=== PATIENT | male | born 1965 | race Caucasian/White ===

== ENCOUNTER 2019-11-02 17:07 | Inpatient (IN) | payer MEDICARE, OTHER ==
[~2019-11-02] VITALS: Ht 172.7 cm; Wt 77.7 kg
[2019-11-02 17:38] LABS: BASOPHILS % (AUTO) 0.1 % (0-1); EOSINOPHILS % (AUTO) 0.6 % (0-6); HEMOGLOBIN 11.8 g/dl (14.0-17.9); LYMPHOCYTES # (AUTO) 0.8 X10'3 (1.1-4.8); LYMPHOCYTES % (AUTO) 9.6 % (21-51); MEAN CORPUSCULAR HEMOGLOBIN 33.8 PG (27.0-31.0); MEAN CORPUSCULAR HGB CONC 34.6 g/dL (33.0-36.5); MEAN CORPUSCULAR VOLUME 97.5 FL (78-98); MEAN PLATELET VOLUME 7.5 FL (7.4-10.4); MONOCYTES # (AUTO) 0.3 X10'3 (0-0.9); MONOCYTES % (AUTO) 3.7 % (2-12); NEUTROPHILS # (AUTO) 7.2 X10'3 (1.8-7.7); PLATELET COUNT 551 X10'3 (140-440); RED BLOOD COUNT 3.49 X10'6 (4.70-6.10); RED CELL DISTRIBUTION WIDTH 14.6 % (11.5-14.5); WHITE BLOOD COUNT 8.3 X10'3 (4.5-11.0)
[2019-11-02 17:57] LABS: ALANINE AMINOTRANSFERASE 14 U/L (12-78); ALBUMIN 1.9 G/DL (3.4-5.0); ALBUMIN/GLOBULIN RATIO 0.5 (1.1-1.5); ALKALINE PHOSPHATASE 84 IU/L (46-116); ANION GAP 11 (8-16); ASPARTATE AMINO TRANSFERASE 31 U/L (10-37); BILIRUBIN,TOTAL 0.4 MG/DL (0.1-1.0); BLOOD UREA NITROGEN 10 MG/DL (7-18); BUN/CREATININE RATIO 11.6 (5.4-32.0); CALCIUM 8.4 MG/DL (8.5-10.1); CHLORIDE 101 MMOL/L (99-107); CREATININE 0.86 MG/DL (0.60-1.10); GLUCOSE 184 MG/DL (70-104); LIPASE 491 U/L (73-393); SODIUM 137 MMOL/L (135-145); TOTAL CARBON DIOXIDE 24.8 MMOL/L (24-32); TOTAL PROTEIN 5.9 G/DL (6.4-8.2); eGFR > 90 ML/MIN
[2019-11-02 18:02] LABS: POTASSIUM 2.9 MMOL/L (3.5-5.1)
[2019-11-02] MEDS ORDERED: ondansetron 4mg rapidly disintigrating tab PO ONE (18:15)
[2019-11-02] MEDS ORDERED: potassium Cl 20 mEq SR tablet PO ONE (18:15)
[2019-11-02] MEDS ORDERED: morphine 4 MG/ML inj SYRINge IM ONE (18:25)
[2019-11-02] MEDS ORDERED: PRED20TA PO (20:03)
[2019-11-02] MEDS ORDERED: RANI150C4 PO (20:05)
[2019-11-02] MEDS ORDERED: CITA20TA2 PO (20:05)
[2019-11-02] MEDS ORDERED: HYDR25TA4 PO (20:05)
[2019-11-02] MEDS ORDERED: TRAZ-251 PO (20:07)
[2019-11-02] MEDS ORDERED: LISI-643 PO (20:07)
[2019-11-02] MEDS ORDERED: ACET-2144 PO (20:07)
[2019-11-02] MEDS ORDERED: magnesium hydroxide 30ml (MOM) UD suspension PO PRN (20:25)
[2019-11-02] MEDS ORDERED: ondansetron/PF 4mg/2ml inj IV PRN (20:25)
[2019-11-02] MEDS ORDERED: acetaminophen 325mg tablet PO PRN (20:25)
[2019-11-02] MEDS ORDERED: mag hydrox/Alum hydrox/simeth 30ml oral suspension PO PRN (20:25)
[2019-11-02] MEDS ORDERED: potassium CL 10mEq/100ml bag 100 ML IV PRN (20:25)
[2019-11-02] MEDS ORDERED: morphine/NS 5 mg/ml CADD 50 ML IV SCH (20:28)
[2019-11-02] MEDS ORDERED: naloxone 0.4 mg/ml inj IV PRN (20:30)
[2019-11-02] MEDS ORDERED: CADD PCA waste documentation MC PRN (20:30)
[2019-11-02 21:20] VITALS: BP 107/69
--- NOTE | 2019-11-02 21:20 | NUR ---
PATIENT ADMITTED TO ROOM 353 FROM ER FOR PANCREATITIS, CROHN'S DISEASE AND HYPOKALEMIA. PLACED COMFORTABLE IN BED. VITAL SIGNS TAKEN AND RECORDED.
[2019-11-02] MEDS: traZODone 50mg tablet PO SCH (21:49)
[2019-11-02] MEDS: potassium Cl 20mEq in NS 1,000 ML IV SCH (21:51)
[2019-11-02] MEDS: potassium CL 10mEq/100ml bag 100 ML IV PRN (22:32)
[2019-11-02] MEDS: morphine/NS 5 mg/ml CADD 50 ML IV SCH (23:29)
[2019-11-03] VITALS: BP 116/74
[2019-11-03] MEDS: morphine/NS 5 mg/ml CADD 50 ML IV SCH ×3 (01:00→05:47)
[2019-11-03] MEDS: potassium CL 10mEq/100ml bag 100 ML IV PRN ×2 (01:12→04:23)
[2019-11-03 06:04] LABS: BASOPHILS % (AUTO) 0.1 % (0-1); EOSINOPHILS % (AUTO) 0.4 % (0-6); HEMATOCRIT 27.6 % (42.0-52.0); HEMOGLOBIN 9.7 g/dl (14.0-17.9); LYMPHOCYTES # (AUTO) 1.8 X10'3 (1.1-4.8); LYMPHOCYTES % (AUTO) 25.9 % (21-51); MEAN CORPUSCULAR HEMOGLOBIN 34.8 PG (27.0-31.0); MEAN CORPUSCULAR HGB CONC 35.1 g/dL (33.0-36.5); MEAN CORPUSCULAR VOLUME 98.9 FL (78-98); MEAN PLATELET VOLUME 7.8 FL (7.4-10.4); MONOCYTES # (AUTO) 0.6 X10'3 (0-0.9); MONOCYTES % (AUTO) 8.7 % (2-12); NEUTROPHILS # (AUTO) 4.5 X10'3 (1.8-7.7); NEUTROPHILS % (AUTO) 64.9 % (42-75); PLATELET COUNT 446 X10'3 (140-440); RED BLOOD COUNT 2.79 X10'6 (4.70-6.10); RED CELL DISTRIBUTION WIDTH 14.5 % (11.5-14.5)
[2019-11-03 06:11] LABS: ALANINE AMINOTRANSFERASE 13 U/L (12-78); ALBUMIN 1.6 G/DL (3.4-5.0); ALBUMIN/GLOBULIN RATIO 0.5 (1.1-1.5); ALKALINE PHOSPHATASE 72 IU/L (46-116); ANION GAP 8 (8-16); ASPARTATE AMINO TRANSFERASE 11 U/L (10-37); BILIRUBIN,TOTAL 0.4 MG/DL (0.1-1.0); BLOOD UREA NITROGEN 9 MG/DL (7-18); BUN/CREATININE RATIO 11.4 (5.4-32.0); CALCIUM 7.8 MG/DL (8.5-10.1); CHLORIDE 104 MMOL/L (99-107); CREATININE 0.79 MG/DL (0.60-1.10); GLUCOSE 102 MG/DL (70-104); POTASSIUM 3.2 MMOL/L (3.5-5.1); SODIUM 139 MMOL/L (135-145); TOTAL CARBON DIOXIDE 26.6 MMOL/L (24-32); TOTAL PROTEIN 5.1 G/DL (6.4-8.2); eGFR > 90 ML/MIN
[2019-11-03] MEDS: potassium Cl 20mEq in NS 1,000 ML IV SCH ×3 (06:23→20:25)
--- NOTE | 2019-11-03 06:25 | NUR ---
Patient in room [facility]. I have received report from Kelley Benson RN and had the opportunity to ask questions and assume patient care.
--- NOTE | 2019-11-03 06:26 | NUR ---
Problems reprioritized. Patient report given, questions answered & plan of care reviewed with NE RN.
[2019-11-03 06:30] VITALS: BP 104/69
[2019-11-03] MEDS: K and/or MAG REPLACEMENT MC SCH ×2 (07:11→20:00)
[2019-11-03] MEDS ORDERED: magnesium 2GM in 50ml NS 50 ML IV PRN (07:15)
[2019-11-03] MEDS ORDERED: potassium Cl 20 mEq SR tablet PO PRN (07:15)
[2019-11-03] MEDS ORDERED: magnesium Cl slow-release 64mg tablet PO PRN (07:15)
[2019-11-03] MEDS ORDERED: magnesium 4gm in 100ml NS 100 ML IV PRN (07:15)
[2019-11-03] MEDS ORDERED: methylPREDNISolone sod succ/PF 40mg inj. IV SCH (08:00)
[2019-11-03] MEDS: lisinopril 10 MG tablet PO SCH (08:00)
[2019-11-03] MEDS: citalopram 20mg tablet PO SCH (08:56)
[2019-11-03] MEDS: famotidine 20mg tablet PO SCH ×2 (08:56→20:11)
[2019-11-03] MEDS: potassium Cl 20 mEq SR tablet PO PRN ×3 (09:00→17:39)
[2019-11-03] MEDS ORDERED: HYDROcodone/acetaminophen 10/325mg tab PO PRN (10:20)
[2019-11-03] MEDS ORDERED: HYDROcodone/acetaminophen 5mg/325mg tablet PO PRN (10:20)
[2019-11-03] MEDS ORDERED: CADD PCA waste documentation MC PRN (10:45)
[2019-11-03] MEDS: HYDROcodone/acetaminophen 10/325mg tab PO PRN ×3 (10:50→23:18)
[2019-11-03 11:30] VITALS: BP 110/71
[2019-11-03 12:17] LABS: C DIFF ANTIGEN NEGATIVE (NEGATIVE); C DIFF SPECIMEN=DIARRHEA? ACCEPTABLE; C DIFFICILE TOXINS A&B NEGATIVE (Neg)
[2019-11-03] MEDS: mesalamine 1.2gm ER tablet PO SCH ×3 (12:53→20:10)
[2019-11-03] MEDS: hydrocortisone sod succ/PF 100mg/2ml inj. IV SCH ×2 (13:29→20:10)
--- NOTE | 2019-11-03 16:01 | NUR ---
Pt recently diagnosed with Crohn's disease in September of this year, treated with Prednisone per H&P. Pt presented with c/o abdominal pain with having about 8 BMs of diarrhea a day per MD notes. Written Crohn's nutrition therapy education with a list of fiber content of foods and RD contact information placed in patient's chart. Will remain available. Addendum: 11/03/19 at [address] Amended: Links added.
[2019-11-03 18:00] VITALS: BP 106/66
--- NOTE | 2019-11-03 18:30 | NUR ---
Problems reprioritized. Patient report given, questions answered & plan of care reviewed with SARAH Eaton.
[2019-11-03 19:00] VITALS: BP 106/66
--- NOTE | 2019-11-03 19:19 | NUR ---
Patient in room [facility]. I have received report from Shreya SMITH and had the opportunity to ask questions and assume patient care.
[2019-11-03] MEDS: traZODone 50mg tablet PO SCH (20:11)
[2019-11-03] MEDS: morphine 2 MG/ML inj. syringe IV PRN (20:19)
[2019-11-04 00:54] VITALS: BP 117/79
[2019-11-04] MEDS: hydrocortisone sod succ/PF 100mg/2ml inj. IV SCH ×4 (02:05→19:39)
[2019-11-04] MEDS: morphine 2 MG/ML inj. syringe IV PRN ×2 (02:05→19:40)
[2019-11-04 04:58] LABS: BASOPHILS % (AUTO) 0 % (0-1); EOSINOPHILS % (AUTO) 0 % (0-6); HEMOGLOBIN 8.7 g/dl (14.0-17.9); LYMPHOCYTES # (AUTO) 0.7 X10'3 (1.1-4.8); LYMPHOCYTES % (AUTO) 13.4 % (21-51); MEAN CORPUSCULAR HEMOGLOBIN 33.3 PG (27.0-31.0); MEAN CORPUSCULAR HGB CONC 33.5 g/dL (33.0-36.5); MEAN CORPUSCULAR VOLUME 99.5 FL (78-98); MEAN PLATELET VOLUME 7.7 FL (7.4-10.4); MONOCYTES # (AUTO) 0.3 X10'3 (0-0.9); MONOCYTES % (AUTO) 5.9 % (2-12); NEUTROPHILS # (AUTO) 4.3 X10'3 (1.8-7.7); NEUTROPHILS % (AUTO) 80.7 % (42-75); PLATELET COUNT 380 X10'3 (140-440); RED BLOOD COUNT 2.62 X10'6 (4.70-6.10); RED CELL DISTRIBUTION WIDTH 14.4 % (11.5-14.5); WHITE BLOOD COUNT 5.3 X10'3 (4.5-11.0)
[2019-11-04 05:09] LABS: ALANINE AMINOTRANSFERASE 15 U/L (12-78); ALBUMIN 1.4 G/DL (3.4-5.0); ALBUMIN/GLOBULIN RATIO 0.4 (1.1-1.5); ALKALINE PHOSPHATASE 64 IU/L (46-116); ANION GAP 4 (8-16); ASPARTATE AMINO TRANSFERASE 16 U/L (10-37); BILIRUBIN,TOTAL 0.2 MG/DL (0.1-1.0); BLOOD UREA NITROGEN 15 MG/DL (7-18); BUN/CREATININE RATIO 18.3 (5.4-32.0); CALCIUM 7.7 MG/DL (8.5-10.1); CHLORIDE 108 MMOL/L (99-107); CREATININE 0.82 MG/DL (0.60-1.10); GLUCOSE 188 MG/DL (70-104); POTASSIUM 4.6 MMOL/L (3.5-5.1); SODIUM 138 MMOL/L (135-145); TOTAL CARBON DIOXIDE 25.9 MMOL/L (24-32); TOTAL PROTEIN 4.7 G/DL (6.4-8.2); eGFR > 90 ML/MIN
--- NOTE | 2019-11-04 06:10 | NUR ---
Patient in room [facility]. I have received report from SARAH Eaton and had the opportunity to ask questions and assume patient care.
--- NOTE | 2019-11-04 06:15 | NUR ---
Problems reprioritized. Patient report given, questions answered & plan of care reviewed with Shreya RN.
[2019-11-04 06:30] VITALS: BP 99/59
[2019-11-04] MEDS: K and/or MAG REPLACEMENT MC SCH ×2 (06:47→20:00)
[2019-11-04] MEDS: lisinopril 10 MG tablet PO SCH (07:06)
[2019-11-04] MEDS: mesalamine 1.2gm ER tablet PO SCH ×4 (07:37→22:27)
[2019-11-04] MEDS: citalopram 20mg tablet PO SCH (07:38)
[2019-11-04] MEDS: HYDROcodone/acetaminophen 10/325mg tab PO PRN ×4 (07:38→22:27)
[2019-11-04] MEDS: famotidine 20mg tablet PO SCH ×2 (07:38→19:37)
[2019-11-04] MEDS: potassium Cl 20mEq in NS 1,000 ML IV SCH ×2 (08:19→17:41)
[2019-11-04 11:00] VITALS: BP 126/84
--- NOTE | 2019-11-04 18:30 | NUR ---
Patient in room [facility]. I have received report from Shreya SMITH and had the opportunity to ask questions and assume patient care.
--- NOTE | 2019-11-04 18:45 | NUR ---
Problems reprioritized. Patient report given, questions answered & plan of care reviewed with Yoon RN & SARAH Sheldon.
[2019-11-04 20:00] VITALS: BP 125/87
[2019-11-04] MEDS: traZODone 50mg tablet PO SCH (22:27)
[2019-11-05] VITALS: BP 119/86
[2019-11-05] MEDS: hydrocortisone sod succ/PF 100mg/2ml inj. IV SCH ×4 (02:53→20:42)
[2019-11-05] MEDS: HYDROcodone/acetaminophen 10/325mg tab PO PRN ×4 (02:54→18:07)
[2019-11-05] MEDS: potassium Cl 20mEq in NS 1,000 ML IV SCH ×2 (03:02→13:22)
[2019-11-05 05:21] LABS: ALANINE AMINOTRANSFERASE 15 U/L (12-78); ALBUMIN 1.5 G/DL (3.4-5.0); ALBUMIN/GLOBULIN RATIO 0.4 (1.1-1.5); ALKALINE PHOSPHATASE 64 IU/L (46-116); ANION GAP 8 (8-16); ASPARTATE AMINO TRANSFERASE 14 U/L (10-37); BILIRUBIN,TOTAL 0.2 MG/DL (0.1-1.0); BLOOD UREA NITROGEN 16 MG/DL (7-18); BUN/CREATININE RATIO 19.3 (5.4-32.0); CHLORIDE 108 MMOL/L (99-107); CREATININE 0.83 MG/DL (0.60-1.10); GLUCOSE 170 MG/DL (70-104); POTASSIUM 4.8 MMOL/L (3.5-5.1); SODIUM 139 MMOL/L (135-145); TOTAL CARBON DIOXIDE 23.2 MMOL/L (24-32); TOTAL PROTEIN 5.2 G/DL (6.4-8.2); eGFR > 90 ML/MIN
[2019-11-05 05:28] LABS: BASOPHILS % (AUTO) 0.2 % (0-1); EOSINOPHILS % (AUTO) 0.5 % (0-6); HEMATOCRIT 27.5 % (42.0-52.0); HEMOGLOBIN 9.1 g/dl (14.0-17.9); LYMPHOCYTES # (AUTO) 0.7 X10'3 (1.1-4.8); LYMPHOCYTES % (AUTO) 13.7 % (21-51); MEAN CORPUSCULAR HEMOGLOBIN 34.1 PG (27.0-31.0); MEAN CORPUSCULAR HGB CONC 33.2 g/dL (33.0-36.5); MEAN CORPUSCULAR VOLUME 102.8 FL (78-98); MEAN PLATELET VOLUME 8.1 FL (7.4-10.4); MONOCYTES # (AUTO) 0.4 X10'3 (0-0.9); MONOCYTES % (AUTO) 6.6 % (2-12); NEUTROPHILS # (AUTO) 4.3 X10'3 (1.8-7.7); PLATELET COUNT 421 X10'3 (140-440); RED BLOOD COUNT 2.67 X10'6 (4.70-6.10); RED CELL DISTRIBUTION WIDTH 14.7 % (11.5-14.5); WHITE BLOOD COUNT 5.4 X10'3 (4.5-11.0)
[2019-11-05] MEDS: morphine 2 MG/ML inj. syringe IV PRN ×2 (05:33→22:43)
--- NOTE | 2019-11-05 06:15 | NUR ---
Patient in room [facility]. I have received report from SARAH Nettles and had the opportunity to ask questions and assume patient care.
[2019-11-05 06:30] VITALS: BP 127/73
--- NOTE | 2019-11-05 06:36 | NUR ---
Problems reprioritized. Patient report given, questions answered & plan of care reviewed with Shreya RN.
[2019-11-05] MEDS: K and/or MAG REPLACEMENT MC SCH ×2 (07:14→19:07)
[2019-11-05] MEDS: mesalamine 1.2gm ER tablet PO SCH ×4 (09:19→20:40)
[2019-11-05] MEDS: famotidine 20mg tablet PO SCH ×2 (09:19→20:40)
[2019-11-05] MEDS: lisinopril 10 MG tablet PO SCH (09:19)
[2019-11-05] MEDS: enoxaparin 40mg/0.4ml syringe SUBCUT SCH (09:20)
[2019-11-05] MEDS: citalopram 20mg tablet PO SCH (09:20)
[2019-11-05] MEDS ORDERED: temazepam 15mg capsule PO PRN (10:45)
[2019-11-05 11:00] VITALS: BP 130/79
--- NOTE | 2019-11-05 12:02 | NUR ---
Nutrition consult: "New Crohn's DX." Nutrition therapy ed w/ RD contact information has been placed in pt chart; see prior RD note. Addendum: 11/05/19 at [address] Amended: Links added.
--- NOTE | 2019-11-05 12:04 | NUR ---
Patient in room [facility]. I have received report from Shreya SMITH and had the opportunity to ask questions and assume patient care.
[2019-11-05 18:00] VITALS: BP 132/86
--- NOTE | 2019-11-05 19:12 | NUR ---
All cares given [place] x2 for pain with effect. report given to Gloria SMITH
[2019-11-05] MEDS ORDERED: traZODone 50mg tablet PO SCH (23:00)
[2019-11-06] VITALS: BP 153/92
[2019-11-06] MEDS: hydrocortisone sod succ/PF 100mg/2ml inj. IV SCH ×2 (02:27→08:38)
[2019-11-06] MEDS: HYDROcodone/acetaminophen 10/325mg tab PO PRN ×2 (02:27→08:39)
[2019-11-06] MEDS: potassium Cl 20mEq in NS 1,000 ML IV SCH ×2 (04:36→08:44)
--- NOTE | 2019-11-06 06:20 | NUR ---
Problems reprioritized. Patient report given, questions answered & plan of care reviewed with SARAH Cartwright.
--- NOTE | 2019-11-06 06:46 | NUR ---
Patient in room [facility]. I have received report from SARAH HENSON and had the opportunity to ask questions and assume patient care.
[2019-11-06 06:55] LABS: BASOPHILS % (AUTO) 0.2 % (0-1); EOSINOPHILS % (AUTO) 0 % (0-6); HEMATOCRIT 27.6 % (42.0-52.0); HEMOGLOBIN 9.2 g/dl (14.0-17.9); LYMPHOCYTES # (AUTO) 0.8 X10'3 (1.1-4.8); LYMPHOCYTES % (AUTO) 14.6 % (21-51); MEAN CORPUSCULAR HEMOGLOBIN 33.1 PG (27.0-31.0); MEAN CORPUSCULAR HGB CONC 33.2 g/dL (33.0-36.5); MEAN PLATELET VOLUME 8.2 FL (7.4-10.4); MONOCYTES # (AUTO) 0.3 X10'3 (0-0.9); MONOCYTES % (AUTO) 5.9 % (2-12); NEUTROPHILS # (AUTO) 4.1 X10'3 (1.8-7.7); NEUTROPHILS % (AUTO) 79.3 % (42-75); PLATELET COUNT 432 X10'3 (140-440); RED BLOOD COUNT 2.76 X10'6 (4.70-6.10); RED CELL DISTRIBUTION WIDTH 14.7 % (11.5-14.5); WHITE BLOOD COUNT 5.2 X10'3 (4.5-11.0)
[2019-11-06 07:00] VITALS: BP 157/90
[2019-11-06 07:08] LABS: ALANINE AMINOTRANSFERASE 19 U/L (12-78); ALBUMIN 1.6 G/DL (3.4-5.0); ALBUMIN/GLOBULIN RATIO 0.5 (1.1-1.5); ALKALINE PHOSPHATASE 70 IU/L (46-116); ANION GAP 6 (8-16); ASPARTATE AMINO TRANSFERASE 14 U/L (10-37); BILIRUBIN,TOTAL 0.1 MG/DL (0.1-1.0); BLOOD UREA NITROGEN 18 MG/DL (7-18); BUN/CREATININE RATIO 20.2 (5.4-32.0); CALCIUM 8.4 MG/DL (8.5-10.1); CHLORIDE 110 MMOL/L (99-107); CREATININE 0.89 MG/DL (0.60-1.10); GLUCOSE 167 MG/DL (70-104); POTASSIUM 4.8 MMOL/L (3.5-5.1); SODIUM 139 MMOL/L (135-145); TOTAL CARBON DIOXIDE 22.7 MMOL/L (24-32); eGFR 89 ML/MIN
[2019-11-06] MEDS: K and/or MAG REPLACEMENT MC SCH (08:00)
[2019-11-06] MEDS: mesalamine 1.2gm ER tablet PO SCH (08:38)
[2019-11-06] MEDS: famotidine 20mg tablet PO SCH (08:38)
[2019-11-06] MEDS: citalopram 20mg tablet PO SCH (08:38)
[2019-11-06] MEDS: lisinopril 10 MG tablet PO SCH (08:38)
[2019-11-06] MEDS: enoxaparin 40mg/0.4ml syringe SUBCUT SCH (08:39)
[2019-11-06] MEDS ORDERED: MESA1.2T PO (10:40)
[2019-11-06] MEDS ORDERED: PRED10TA23 PO (10:40)
[2019-11-06] MEDS ORDERED: HYDR-4383 PO (10:40)
[2019-11-06 12:50] VITALS: BP 149/83
--- NOTE | 2019-11-06 14:00 | NUR ---
PATIENT WAITED TILL AFTER LUNCH TO DISCHARGE, PATIENT STABLE AND APPROPRIATE FOR DISCHARGE, IV TAKEN OUT, EDUCATION GIVEN, ALL BELONGINGS SENT WITH PATIENT, PATIENT TAKEN TO LOBBY BY WHEELCHAIR TO AN AWAITING TAXI, THAT WAS PAID BY [facility] WITH APPROVAL OF MECHANICAL [employer] DRAFTER
[2019-11-06] MEDS ORDERED: MESA800T9 PO (16:41)
--- NOTE | 2019-11-06 17:25 | NUR ---
PATIENT CALLED BECAUSE NEW MED, MESALAMINE FOR CROHN'S DISEASE, WAS EXPENSIVE AND PATIENT COULD NOT PAY FOR IT. WITH INSURANCE MED WOULD BE APPROXIMALLY $375. [facility] SUGGESTED IF DOSE WAS CHANGED TO LOWER DOSE THE COST MAY BE MORE AFFORDABLE, CALLED DR GAMEZ TO CHANGE DOSE, DOSE WAS CHANGED. [facility] CALLED INSURANCE DOES NOT COVER THE LOWER DOSE. DURING THIS TIME PATIENT WAS CALLING PRIMARY CARE PROVIDER IN [place] TO SEE IF THEY COULD HELP WITH GETTING THE MEDS. THEY CONTACTED ME AND WE DISCUSSED OPTIONS, THEY FOUND THAT WITH INSURANCE AND [employer] THE COST WOULD BE APPROXIMALLY $150. CALLED PATIENT TO SEE IF HE COULD COVER $150, HE CAN NOT, HE CAN ONLY AFFORD $1.30 AT THIS TIME. HAVE CONTACTED RESULTS TECHNICIAN AND CASE MANAGEMENT, AWAITING CALL BACK.
== END 2019-11-06 14:00 | disposition home or self-care (01) | DRG 385 ==
LOC: ER 17:10 → ED HOLD 20:23 → SUR 3N 21:15
PROVIDERS: ADMIT Internal Medicine; ATTEND Internal Medicine
DX: K50.90 Crohn's disease, unspecified, without complications (principal); E43 Unspecified severe protein-calorie malnutrition; K85.90 Acute pancreatitis without necrosis or infection, unspecified; K52.89 Other specified noninfective gastroenteritis and colitis; F17.210 Nicotine dependence, cigarettes, uncomplicated; D63.8 Anemia in other chronic diseases classified elsewhere; E87.6 Hypokalemia; G47.00 Insomnia, unspecified; I10 Essential (primary) hypertension; F32.9 Major depressive disorder, single episode, unspecified; Z79.899 Other long term (current) drug therapy; Z68.26 Body mass index [BMI] 26.0-26.9, adult
CPT/HCPCS: 36415; 74176; 80053; 83690; 85025; 87081; 87324; 87449; 96372; 99285; G0378; J1650; J1720; J2270; J2920; J3480

== ENCOUNTER 2019-11-08 15:15 | Emergency (ER) | payer MEDICARE, OTHER ==
[~2019-11-08] VITALS: Ht 172.7 cm; Wt 81.8 kg
[~2019-11-08 15:15] MED LIST: CITA20TA2 PO; HYDR-4383 PO; HYDR25TA4 PO; LISI-643 PO; MESA800T9 PO; PRED10TA23 PO; RANI150C4 PO; TRAZ-251 PO
[2019-11-08] MEDS ORDERED: normal saline 1000ML IV soln IVB ONE (15:40)
[2019-11-08] MEDS ORDERED: ondansetron/PF 4mg/2ml inj IV ONE (15:40)
[2019-11-08 15:48] LABS: BASOPHILS % (AUTO) 0.4 % (0-1); EOSINOPHILS % (AUTO) 0.5 % (0-6); HEMATOCRIT 29.8 % (42.0-52.0); LYMPHOCYTES # (AUTO) 1.8 X10'3 (1.1-4.8); LYMPHOCYTES % (AUTO) 28.6 % (21-51); MEAN CORPUSCULAR HEMOGLOBIN 32.7 PG (27.0-31.0); MEAN CORPUSCULAR HGB CONC 33.8 g/dL (33.0-36.5); MEAN CORPUSCULAR VOLUME 96.9 FL (78-98); MEAN PLATELET VOLUME 7.4 FL (7.4-10.4); MONOCYTES # (AUTO) 0.5 X10'3 (0-0.9); MONOCYTES % (AUTO) 8.1 % (2-12); NEUTROPHILS # (AUTO) 3.9 X10'3 (1.8-7.7); NEUTROPHILS % (AUTO) 62.4 % (42-75); PLATELET COUNT 451 X10'3 (140-440); RED BLOOD COUNT 3.07 X10'6 (4.70-6.10); RED CELL DISTRIBUTION WIDTH 14.7 % (11.5-14.5); WHITE BLOOD COUNT 6.3 X10'3 (4.5-11.0)
[2019-11-08] MEDS ORDERED: mesalamine 1.2gm ER tablet PO SCH (15:50)
[2019-11-08 16:01] LABS: ALANINE AMINOTRANSFERASE 27 U/L (12-78); ALBUMIN 1.7 G/DL (3.4-5.0); ALBUMIN/GLOBULIN RATIO 0.5 (1.1-1.5); ALKALINE PHOSPHATASE 78 IU/L (46-116); ANION GAP 7 (8-16); ASPARTATE AMINO TRANSFERASE 19 U/L (10-37); BILIRUBIN,TOTAL 0.5 MG/DL (0.1-1.0); BLOOD UREA NITROGEN 9 MG/DL (7-18); BUN/CREATININE RATIO 10.5 (5.4-32.0); CHLORIDE 102 MMOL/L (99-107); CREATININE 0.86 MG/DL (0.60-1.10); GLUCOSE 91 MG/DL (70-104); LIPASE 159 U/L (73-393); SODIUM 138 MMOL/L (135-145); TOTAL CARBON DIOXIDE 29.3 MMOL/L (24-32); TOTAL PROTEIN 5.1 G/DL (6.4-8.2); eGFR > 90 ML/MIN
[2019-11-08 16:05] LABS: MAGNESIUM 1.6 MG/DL (1.5-2.4)
[2019-11-08 16:09] LABS: PARTIAL THROMBOPLASTIN TIME 34 SECONDS (22-32)
[2019-11-08] MEDS ORDERED: potassium Cl 20 mEq SR tablet PO ONE (16:15)
[2019-11-08] MEDS ORDERED: MESA1.2T PO (16:30)
[2019-11-08] MEDS ORDERED: HYDROcodone/acetaminophen 10/325mg tab PO ONE (16:30)
[2019-11-08] MEDS ORDERED: normal saline 1000ml 1,000 ML IV ONE (16:35)
[2019-11-08] MEDS ORDERED: morphine 4 MG/ML inj SYRINge IV ONE (16:35)
[2019-11-08 17:07] LABS: ANISOCYTOSIS FEW; PLATELET ESTIMATE INCREASED; POLYCHROMASIA 1+; TOTAL CELLS COUNTED 100
[2019-11-08 18:02] VITALS: BP 129/80
== END 2019-11-08 18:26 | disposition home or self-care (01) ==
LOC: ER 15:15
DX: K50.90 Crohn's disease, unspecified, without complications (principal); R19.7 Diarrhea, unspecified; E87.6 Hypokalemia; Z79.899 Other long term (current) drug therapy; Z98.890 Other specified postprocedural states; Z56.0 Unemployment, unspecified
CPT/HCPCS: 36415; 80053; 83605; 83690; 83735; 84145; 85025; 85610; 85730; 87040; 93005; 96361; 96374; 99284; J2270; J7030

== ENCOUNTER 2025-04-17 13:37 | Emergency (ER) | payer MEDICARE ==
[~2025-04-17] VITALS: Ht 170.2 cm; Wt 68.2 kg
[~2025-04-17 13:37] MED LIST changes: +MESA1.2T PO; -MESA800T9 PO; -PRED10TA23 PO; -RANI150C4 PO; -TRAZ-251 PO
[2025-04-17 13:43] VITALS: BP 125/84; PULSE 78; RESP 16; TEMP 98.9; O2SAT 97
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
== END 2025-04-17 16:16 | disposition left against medical advice (07) ==
LOC: ER 13:38
DX: S01.01XD Laceration without foreign body of scalp, subsequent encounter (principal); X58.XXXD Exposure to other specified factors, subsequent encounter
CPT/HCPCS: 99283

== ENCOUNTER 2025-05-24 22:24 | Emergency (ER) | payer MEDICARE, MEDICAID ==
[~2025-05-24] VITALS: Ht 172.7 cm; Wt 68.0 kg
[2025-05-24 23:05] VITALS: BP 152/81; PULSE 98; RESP 15; O2SAT 98
--- NOTE | 2025-05-25 00:47 | Physician Documentation ---
History of Present Illness ~ Chief Complaint: Rash Stated Complaint: RASH Time Seen by MD: 00:59 Primary Medical Doctor: none HPI This is a 59-year-old male who presents with a rash to bilateral arms, patient reports that he normally use a cream that helps rash though the cream is no longer working. He states symptoms began three days ago and it itches like hell. He is homeless and has been camping in the bushes. Medication Reconciliation Allergies: Coded Allergies: No Known Allergies (Unverified , 05/24/25) Scheduled Citalopram Hydrobromide (Citalopram Hbr), 1 TAB PO DAILY, (Reported) Lisinopril (Zestril), 1 TAB PO DAILY, (Reported) Mesalamine (Lialda), 1 TAB PO QID Scheduled PRN Hydrochlorothiazide (Hydrochlorothiazide), 1 TAB PO PRN PRN for lower extremity edema, (Reported) Hydrocodone/Acetaminophen ([place] 5-325 Tablet), 1 TAB PO Q6H PRN for moderate or severe pain Past Medical History Past Surgical History: abdominal surgery Alcohol Use: None Drug Use: none Lives with: Other Lives In: Home Occupation: unemployed Review of Systems ROS As stated above in the HPI, otherwise all systems are reviewed and negative. Physical Exam Vital Signs: Temperature: 97.6, Source: Temporal, Heart Rate: 98, Respiratory Rate: 15, BP: 152/81, Pulse Oximetry: 98, Weight: 68.000 Physical Exam General: Patient is awake, alert, oriented x4 in no acute distress Head: Normocephalic and atraumatic. Eyes: Conjunctival normal. EOMI. PERRL. ENT: Mucous membranes moist. Neck: Supple, trachea is midline. Chest: Clear to auscultation bilaterally without rales, rhonchi, or wheezes. There is no accessory muscle use or retractions. Cardiac: RRR without murmurs, gallops, or rubs. Skin: Erythema with associated excoriations to skin exposed areas. No rash on back. Progress Results/Orders Results/Orders Vital Signs 05/24/25 23:05 Temp 97.6 Pulse 98 Resp 15 B/P (MAP) 152/81 Pulse Ox 98 Medical Decision Making Additional information obtaine: N/A Findings Patient presented to the emergency room with pruritic rash. Differentials include but are not limited to poison oak, poison sumac, poison april, contact dermatitis, allergic reaction. Given time of onset and physical exam symptoms are consistent with poison oak and we will treat him accordingly. No wheezing or facial involvement he had not feel he has any danger of airway obstruction. Differential Dx:Considerations: Include: Abscess, AIDS/HIV, Anthrax (cutaneous), Atopic dermatitis, Candidiasis, Contact dermatitis, Drug reaction, Erythema multiforme, Erysipelas, Gangrene, Herpes zoster, Herpes simplex, Hidra denitis suppurativa, Impetigo, Intertrigo, Lymes disease, Molluscum contagiosum, Osteomyelitis, Pediculosis, Pityriasis rosea, Psoriaisis, RMSF, Rosacea, Scabies, Scarlet fever, Tinea, Urticaria, Varicella, Viral exanthema, Other Departure Disposition: 01 HOME / SELF CARE / HOMELESS Impression: Primary Impression: Poison oak Condition: Stable Discharge Instructions: Poison [place] Dermatitis Additional Instructions: [id number] calamine lotion can be helpful. They also make a topical Benadryl that has can be helpful Referrals: NO PRIMARY CARE PROVIDER (PCP) Prescriptions Prednisone* (Prednisone*) 20 Mg Tablet 1 TAB PO DAILY for 5 Days, #5 TAB Prov: SEAN GARDNER MD 05/25/25 Diphenhydramine Hcl (Benadryl) 25 Mg Capsule 2 CAP PO Q8H for Itching for 30 Days, #30 CAP 0 Refills Prov: SEAN GARDNER MD 05/25/25 Signature Scribe Signature: No scribe Attestation: The note accurately reflects work and decisions made by me.Sean Gardner MD 05/25/25 01:06 HAYDEN PINEDO May 25, 2025 00:47 SEAN GARDNER MD May 25, 2025 01:06
[2025-05-25] MEDS ORDERED: PRED20TA PO (01:06)
[2025-05-25] MEDS ORDERED: DIPH25CA83 PO (01:06)
[2025-05-25 01:07] VITALS: TEMP 97.6
[2025-05-25] MEDS: triamcinolone acetonide 40mg/ml inj IM ONE (01:22)
[2025-05-25] MEDS: dexamethasone sod phosphate 10mg/ml inj IM STA (01:22)
== END 2025-05-25 01:34 | disposition home or self-care (01) ==
LOC: ER 22:25
DX: L23.7 Allergic contact dermatitis due to plants, except food (principal); Z59.00 Homelessness unspecified; Z79.899 Other long term (current) drug therapy; Z56.0 Unemployment, unspecified
CPT/HCPCS: 96372; 99284; J1100; J1200; J3301

== ENCOUNTER 2025-05-28 00:53 | Emergency (ER) | payer MEDICARE, MEDICAID ==
[~2025-05-28] VITALS: Ht 170.2 cm; Wt 68.2 kg
[~2025-05-28 00:53] MED LIST changes: +DIPH25CA83 PO; +PRED20TA PO
--- NOTE | 2025-05-28 02:23 | Physician Documentation ---
History of Present Illness ~ Chief Complaint: Rash Stated Complaint: RASH Time Seen by MD: 01:58 Primary Medical Doctor: none HPI 59-year-old male who presents with a rash to his arms. Per chart review, the patient was seen here recently and diagnosed with a poison oak dermatitis rash to his arms. He was given a topical cream. He returns today, complaining of worsening rash to his arms. He states it is painful and itchy. He also has a little bit of an itchy rash on his inner thighs. No fevers or other infectious type symptoms. He is homeless and has been sleeping outside. Medication Reconciliation Allergies: Coded Allergies: No Known Allergies (Unverified , 05/24/25) Scheduled Citalopram Hydrobromide (Citalopram Hbr), 1 TAB PO DAILY, (Reported) Diphenhydramine Hcl (Benadryl), 2 CAP PO Q8H Lisinopril (Zestril), 1 TAB PO DAILY, (Reported) Mesalamine (Lialda), 1 TAB PO QID Prednisone* (Prednisone*), 1 TAB PO DAILY Scheduled PRN Hydrochlorothiazide (Hydrochlorothiazide), 1 TAB PO PRN PRN for lower extremity edema, (Reported) Hydrocodone/Acetaminophen ([place] 5-325 Tablet), 1 TAB PO Q6H PRN for moderate or severe pain Past Medical History Past Surgical History: abdominal surgery Alcohol Use: None Drug Use: none Lives with: Other Lives In: Home Occupation: unemployed Review of Systems Constitutional: Denies: fever Integumentary: Reports: rash, itching Physical Exam Vital Signs: Temperature: 97.7, Heart Rate: 65, Respiratory Rate: 16, BP: 145/94, Pulse Oximetry: 100, Weight: 68.180 Oxygen Flow Rate: 0 Physical Exam General: This is a middle-aged man, appears disheveled and where he multiple codes HEENT: Atraumatic, oropharynx is moist Heart: Regular rate and rhythm, normal-appearing peripheral perfusion Lungs: normal work of breathing, normal oxygen saturation on room air Skin: The patient has a rash on both forearms, which is erythematous, scattered raised maculopapules, with areas of excoriation. No significant beefy red erythema or evidence of cellulitis. He also has a similar-appearing rash on his right inner thigh Neuro: Alert and oriented Psychiatric: Calm and cooperative with exam Progress Results/Orders Results/Orders Orders - OLGA BALDWIN MD Betamet Acet/Betametb Sod Phos ([place] (05/28/25 02:30) Completed Orders - OLGA BALDWIN MD Triamcinolone Acet 40mg/Ml Inj (Kenalog- (05/28/25 02:30) Diphenhydramine Inj (Benadryl Inj.) (05/28/25 02:30) Vital Signs 05/28/25 01:06 Temp 97.7 Pulse 65 Resp 16 B/P (MAP) 145/94 Pulse Ox 100 O2 Flow Rate 0 Medical Decision Making Additional information obtaine: old records Findings Reviewed previous ER visit Differential Dx:Considerations: Include: Atopic dermatitis, Contact dermatitis, Drug reaction, Urticaria Additional Comment Patient presents with a rash. He was seen previously and diagnosed with poison oak dermatitis. He has been using topical treatments without relief. On exam he still has findings that seem consistent with poison oak. He will be given IM steroids and Benadryl. He was given home care instructions and discharged. Departure Time of Disposition: 02:31 Disposition: 01 HOME / SELF CARE / HOMELESS Impression: Primary Impression: Poison oak dermatitis Condition: Stable Discharge Instructions: Poison [place] Dermatitis Referrals: NO PRIMARY CARE PROVIDER (PCP) Education Educated: Patient Educated regarding: diagnosis, treatment, need for follow up Signature Scribe Signature: na Attestation: OLGA Renae MD May 28, 2025 02:23
[2025-05-28] MEDS ORDERED: [UNRECOGNIZED DRUG - OTHER] IM ONE (02:30)
[2025-05-28] MEDS: triamcinolone acetonide 40mg/ml inj IM ONE (03:09)
[2025-05-28 03:43] VITALS: BP 148/82; PULSE 63; RESP 16; TEMP 97.7; O2SAT 100
== END 2025-05-28 03:45 | disposition home or self-care (01) ==
LOC: ER 00:54
DX: L23.7 Allergic contact dermatitis due to plants, except food (principal)
CPT/HCPCS: 96372; 99284; J1200; J3301

== ENCOUNTER 2025-07-18 19:10 | Emergency (ER) | payer MEDICARE, MEDICAID ==
[~2025-07-18] VITALS: Ht 172.7 cm; Wt 75.0 kg
[~2025-07-18 19:10] MED LIST changes: -CITA20TA2 PO; -DIPH25CA83 PO; -HYDR-4383 PO; -HYDR25TA4 PO; +LACT1CAP26 PO; +LINE600T14 PO; -MESA1.2T PO; -PRED20TA PO
[2025-07-18 19:14] VITALS: BP 133/82; PULSE 98; RESP 16; TEMP 97.8; O2SAT 96
[2025-07-18] MEDS ORDERED: ACET325T57 PO (19:30)
--- NOTE | 2025-07-18 19:30 | Physician Documentation ---
History of Present Illness ~ Chief Complaint: Leg Pain Stated Complaint: LEG PAIN Time Seen by MD: 19:19 Primary Medical Doctor: None HPI This is a 60-year-old male who presents by EMS with left leg pain, patient reports he was recently diagnosed with cellulitis and prescribed antibiotics however was unable to pick antibiotics up. Reports no other acute symptoms or concerns including no fever chills, or other systemic symptoms. Tetanus witin 5 years: Yes Medication Reconciliation Allergies: Coded Allergies: No Known Allergies (Unverified , 07/07/25) Scheduled Lactobacillus Rhamnosus (Culturelle), 1 CAP PO DAILY Linezolid (Linezolid), 1 TAB PO Q12H Lisinopril (Zestril), 1 TAB PO DAILY, (Reported) Scheduled PRN Acetaminophen (Acetaminophen), 1 TAB PO Q4HPRN PRN for pain or fever Past Medical History Past Medical History: No Pertinent History Past Surgical History: abdominal surgery Patient History: Patient reports no known family medical history. Alcohol Use: None Drug Use: none Lives with: Other Lives In: Home Occupation: unemployed Review of Systems ROS As stated above in the HPI, otherwise all systems are reviewed and negative. Physical Exam Vital Signs: Temperature: 97.8, Source: Oral, Heart Rate: 98, Respiratory Rate: 16, BP: 133/82, Pulse Oximetry: 96, Weight: 75.000 Physical Exam VITALS: Reviewed and as above. GENERAL: Alert, nontoxic appearing, no apparent distress. RESPIRATORY: No increased work of breathing, no respiratory distress, speaking in full clear sentences CV: No lower extremity edema MUSCULOSKELETAL: SKIN: Left leg no erythema, swelling, induration, or fluctuance Progress Results/Orders Results/Orders Completed Orders - HAYDEN PINEDO [employer]SEM[employer] Acetaminophen 325mg Tablet (Tylenol Tabl (07/18/25 19:30) Vital Signs 07/18/25 19:14 Temp 97.8 Pulse 98 Resp 16 B/P (MAP) 133/82 Pulse Ox 96 Medical Decision Making Additional information obtaine: N/A Findings This 60-year-old male presents with left leg pain, physical exam did not demonstrate evidence of erythema, swelling, induration, or fluctuance to suggest infective process, patient medicated for pain discharged to follow up care provider or van. Patient discharged with return to care precautions, follow up instructions home care instructions General Diff Dx:Considerations: Include: Abrasion, Contusion, Hematoma, Laceration, Neurovascular injury, Sprain, Ulcer, Other (Cellulitis) Knee Diff Dx:Considerations: Include: Gout, Septic, Sprain Ankle Diff Dx:Considerations: Include: Abrasion, Arthritis, Contusion, Neurovascular injury, Rheumatoid arthritis, Sprain, Septic Foot Diff Dx:Considerations: Unlikely: Abrasion, Arthritis, Cellulitis, Contusion, Dislocation, DJD, Fracture-metatarsal, Fracture-phalynx, Fracture-tarsal, Gout, Hematoma, Ingrown toenail, Laceration, Malunion, Neurovascular injury, Open fracture, Paronychia, Puncture, Rheumatoid, Sprain, Septic, Subungual hematoma, Ulcer, Other Toe Diff Dx:Considerations: Unlikely: Abrasion, Cellulitis, Contusion, Dislocation, Felon, Fracture, Hematoma, Laceration, Neurovascular injury, Open fracture, Paronychia, Subungual hematoma, Other Departure Time of Disposition: 19:28 Impression: Primary Impression: Leg pain Qualified Codes: M79.605 - Pain in left leg Condition: Improved Additional Instructions: You may use ibuprofen and or Tylenol as needed for your leg pain, there was no evidence of active cellulitis. Please follow up with your primary care provider in the next few days. Please return to the emergency department for any new or worsening concerning symptoms. Referrals: NO PRIMARY CARE PROVIDER (PCP) Prescriptions Acetaminophen (Acetaminophen) 325 Mg Tablet 1 TAB PO Q4HPRN PRN for pain or fever for 24 Days, #100 TAB Prov: HAYDEN PINEDO 07/18/25 Education Educated: Patient Educated regarding: diagnosis, treatment, prognosis, need for follow up Signature Scribe Signature: No Scribe Attestation: The note accurately reflects work and decisions made by me.GABBI Minaya 07/19/25 11:20 HAYDEN PINEDO Jul 18, 2025 19:30
== END 2025-07-18 19:40 | disposition home or self-care (01) ==
LOC: ER 19:11
DX: M79.605 Pain in left leg (principal); Z79.899 Other long term (current) drug therapy; Z56.0 Unemployment, unspecified
CPT/HCPCS: 99283